=== PATIENT | female | born 1970 | race Caucasian/White ===

== ENCOUNTER 2020-09-24 09:38 | Outpatient (CLI) | payer BC | END 2020-09-24 09:39 | disposition home or self-care (01) | LOC: BICMAMMO 09:38 | PROVIDERS: ATTEND Family Medicine | DX: C50.212 Malignant neoplasm of upper-inner quadrant of left female breast (principal); N64.89 Other specified disorders of breast; Z98.890 Other specified postprocedural states | CPT/HCPCS: 19083; 77063; 77066; 77067; 88305; 88341; 88342; G0279 ==